=== PATIENT | male | born 1980 | race Caucasian/White ===

== ENCOUNTER 2016-06-30 17:31 | Emergency (ER) | payer OTHER ==
[~2016-06-30] VITALS: Ht 175.3 cm; Wt 76.5 kg
[~2016-06-30 17:31] MED LIST: ASACOL400 MG PO; ASPIRIN325 MG PO; BENTYL10 MG PO; BENTYL20 MG PO; CIPRO500 MG PO; DONNATAL1 TABLET PO; ENDOCORT PO; FLAGYL500 MG PO; METAMUCIL PACKE1 PKT PO; NIACIN 50 MG TA50 MG PO; NORCO 5/3251 TABLET PO; NORCO 7.5/321 TABLET PO; OXYCODONE HCL10 MG PO; PERCOCET 10-321 EACH PO; PERCOCET 5/31 TABLET PO; PREDNISONE10 MG PO; REMICADE10 MG/ML IV; SUDAFED30 MG PO; ULTRAM50 MG PO; ZOFRAN ODT4 MG PO
[2016-06-30 17:42] VITALS: BP 125/83
[2016-06-30] MEDS ORDERED: KEFLEX500 MG PO (18:35)
== END 2016-06-30 19:08 | disposition home or self-care (01) ==
LOC: EME 17:31
DX: L02.416 Cutaneous abscess of left lower limb (principal); Z88.6 Allergy status to analgesic agent
CPT/HCPCS: 99281; 99283

== ENCOUNTER 2016-11-07 08:31 | Day surgery (SDC) | payer OTHER ==
[~2016-11-07] VITALS: Ht 175.3 cm; Wt 79.4 kg
[~2016-11-07 08:31] MED LIST changes: +FLEXERIL10 MG PO; +KEFLEX500 MG PO; +LYRICA100 MG PO; +PROAIR HFA8.5 GM IH; +ZYBAN 150 MG T150 MG PO
== END 2016-11-07 10:25 | disposition home or self-care (01) ==
LOC: PAIN 08:31
DX: M50.13 Cervical disc disorder with radiculopathy, cervicothoracic region (principal); M99.81 Other biomechanical lesions of cervical region; M48.02 Spinal stenosis, cervical region; F17.210 Nicotine dependence, cigarettes, uncomplicated; Z79.891 Long term (current) use of opiate analgesic
CPT/HCPCS: J1030; J2250; J3010

== ENCOUNTER 2016-12-12 08:41 | Day surgery (SDC) | payer OTHER ==
[~2016-12-12] VITALS: Ht 175.3 cm; Wt 81.6 kg
== END 2016-12-12 10:34 | disposition home or self-care (01) ==
LOC: PAIN 08:41 → SDC 09:15 → PAIN 09:15
PROC: 3E0R3BZ Introduction of Anesthetic Agent into Spinal Canal, Percutaneous Approach (ICD-10-PCS; principal; 2016-12-12)
PROC: 3E0R33Z Introduction of Anti-inflammatory into Spinal Canal, Percutaneous Approach (ICD-10-PCS; principal; 2016-12-12)
PROC: B01B1ZZ Fluoroscopy of Spinal Cord using Low Osmolar Contrast (ICD-10-PCS; 2016-12-12)
DX: M50.123 Cervical disc disorder at C6-C7 level with radiculopathy (principal); K50.90 Crohn's disease, unspecified, without complications; E78.5 Hyperlipidemia, unspecified; J45.909 Unspecified asthma, uncomplicated; F41.8 Other specified anxiety disorders; F17.210 Nicotine dependence, cigarettes, uncomplicated
CPT/HCPCS: J1030; J2250; J3010

== ENCOUNTER 2017-02-13 08:00 | Day surgery (SDC) | payer OTHER ==
[~2017-02-13] VITALS: Ht 175.3 cm; Wt 81.6 kg
== END 2017-02-13 10:30 | disposition home or self-care (01) ==
LOC: PAIN 08:00 → SDC 09:00 → PAIN 09:00
DX: M51.36 Other intervertebral disc degeneration, lumbar region (principal); M54.5 Low back pain; G89.29 Other chronic pain; M48.06 Spinal stenosis, lumbar region; Z87.891 Personal history of nicotine dependence; J45.909 Unspecified asthma, uncomplicated
CPT/HCPCS: J1030; J2250; J3010; S0020

== ENCOUNTER 2017-02-20 15:08 | Day surgery (SDC) | payer OTHER ==
[~2017-02-20] VITALS: Ht 175.3 cm; Wt 81.6 kg
== END 2017-02-20 17:01 | disposition home or self-care (01) ==
LOC: PAIN 15:08
DX: M43.06 Spondylolysis, lumbar region (principal); M54.5 Low back pain; G89.29 Other chronic pain; M51.36 Other intervertebral disc degeneration, lumbar region; G56.21 Lesion of ulnar nerve, right upper limb; M54.12 Radiculopathy, cervical region; M48.02 Spinal stenosis, cervical region; J45.909 Unspecified asthma, uncomplicated; Z87.891 Personal history of nicotine dependence; F17.200 Nicotine dependence, unspecified, uncomplicated
CPT/HCPCS: J1030; J2250; J3010; S0020

== ENCOUNTER → 2017-03-23 | Outpatient (CLI) | payer OTHER | END | disposition home or self-care (01) | LOC: CDC 09:35 | DX: M79.601 Pain in right arm (principal); G56.21 Lesion of ulnar nerve, right upper limb | CPT/HCPCS: 93000 ==

== ENCOUNTER 2017-05-10 14:12 | Day surgery (SDC) | payer OTHER ==
[~2017-05-10] VITALS: Ht 175.3 cm; Wt 90.7 kg
== END 2017-05-10 15:55 | disposition home or self-care (01) ==
LOC: PAIN 14:12 → SDC 14:30 → PAIN 15:55
DX: M47.816 Spondylosis without myelopathy or radiculopathy, lumbar region (principal); M43.06 Spondylolysis, lumbar region; M54.12 Radiculopathy, cervical region; M12.88 Other specific arthropathies, not elsewhere classified, other specified site; Z87.891 Personal history of nicotine dependence; K50.90 Crohn's disease, unspecified, without complications; F41.9 Anxiety disorder, unspecified; F32.9 Major depressive disorder, single episode, unspecified; E78.5 Hyperlipidemia, unspecified; Z88.5 Allergy status to narcotic agent; Z88.8 Allergy status to other drugs, medicaments and biological substances
CPT/HCPCS: J1030; J1885; J2250; J3010; S0020

== ENCOUNTER 2017-05-17 14:00 | Day surgery (SDC) | payer OTHER ==
[~2017-05-17] VITALS: Ht 177.8 cm; Wt 86.6 kg
== END 2017-05-17 15:35 | disposition home or self-care (01) ==
LOC: PAIN 14:00 → SDC 14:30 → PAIN 14:30
DX: M47.816 Spondylosis without myelopathy or radiculopathy, lumbar region (principal); M54.5 Low back pain; G89.29 Other chronic pain; M48.02 Spinal stenosis, cervical region; J45.909 Unspecified asthma, uncomplicated; M54.12 Radiculopathy, cervical region; E78.5 Hyperlipidemia, unspecified; Z79.891 Long term (current) use of opiate analgesic; Z87.891 Personal history of nicotine dependence
CPT/HCPCS: J1030; J1885; J2250; J3010; S0020

== ENCOUNTER 2017-05-22 23:54 | Emergency (ER) | payer OTHER ==
[~2017-05-22] VITALS: Ht 175.3 cm; Wt 88.0 kg
[2017-05-23] MEDS ORDERED: MEDROL DOSEPAK4 MG PO (03:55)
[2017-05-23 04:14] VITALS: BP 135/95
== END 2017-05-23 04:15 | disposition home or self-care (01) ==
LOC: EME 23:54
DX: M25.512 Pain in left shoulder (principal); Z88.6 Allergy status to analgesic agent; Z88.5 Allergy status to narcotic agent; Z88.8 Allergy status to other drugs, medicaments and biological substances
CPT/HCPCS: 73030; 93971; 99281; 99283

== ENCOUNTER → 2017-07-10 | Day surgery (SDC) | payer OTHER ==
[~2017-07-10] VITALS: Ht 177.8 cm; Wt 90.7 kg
[~2017-07-10] MED LIST changes: +MEDROL DOSEPAK4 MG PO
== END | disposition home or self-care (01) ==
LOC: PAIN 14:50 → SDC 15:15 → PAIN 15:15
PROC: 3E0S33Z Introduction of Anti-inflammatory into Epidural Space, Percutaneous Approach (ICD-10-PCS; principal; 2017-07-10)
DX: M50.221 Other cervical disc displacement at C4-C5 level (principal); M54.12 Radiculopathy, cervical region; M19.90 Unspecified osteoarthritis, unspecified site; M47.816 Spondylosis without myelopathy or radiculopathy, lumbar region; Z79.891 Long term (current) use of opiate analgesic; K50.90 Crohn's disease, unspecified, without complications; E78.5 Hyperlipidemia, unspecified; Q05.9 Spina bifida, unspecified; Z88.5 Allergy status to narcotic agent
CPT/HCPCS: J1100; J2250; J3010

== ENCOUNTER 2017-08-07 14:48 | Day surgery (SDC) | payer OTHER ==
[~2017-08-07] VITALS: Ht 177.8 cm; Wt 90.7 kg
== END 2017-08-07 15:45 | disposition home or self-care (01) ==
LOC: PAIN 14:48 → SDC 15:15 → PAIN 15:15
DX: M54.12 Radiculopathy, cervical region (principal); M47.812 Spondylosis without myelopathy or radiculopathy, cervical region; M50.221 Other cervical disc displacement at C4-C5 level; M47.816 Spondylosis without myelopathy or radiculopathy, lumbar region; J45.909 Unspecified asthma, uncomplicated; K21.9 Gastro-esophageal reflux disease without esophagitis; K50.90 Crohn's disease, unspecified, without complications; M79.1 Myalgia; M48.02 Spinal stenosis, cervical region; Z79.891 Long term (current) use of opiate analgesic; Z87.891 Personal history of nicotine dependence
CPT/HCPCS: J1100; J2250; J3010

== ENCOUNTER 2017-10-06 08:52 | Emergency (ER) | payer OTHER ==
[~2017-10-06] VITALS: Ht 175.3 cm; Wt 84.1 kg
[2017-10-06 09:58] LABS: BASOPHIL (%) 0.5 % (0-1); EOSINOPHIL COUNT 0.1 K/uL (0-0.3); HEMOGLOBIN 13.2 G/DL (12.5-16.6); IMMATURE GRANULOCYTE (%) 0.2 % (0.0-0.7); LYMPHOCYTE (%) 16.1 % (15-42); LYMPHOCYTE COUNT 1.3 K/uL (1.0-2.8); MCH 27.3 PG (29.0-34.0); MCHC 31.4 G/DL (30.0-36.0); MONOCYTE COUNT 0.6 K/uL (0-0.8); NEUTROPHIL (%) 75.2 % (45-76); NEUTROPHIL COUNT 6.3 K/uL (1.8-6.4); PLATELET COUNT 377 K/uL (156-360); RBC DIS.WIDTH-CV 15.4 % (11.8-14.6); RBC DIS.WIDTH-SD 49.4 % (39-53); RED BLOOD COUNT 4.83 M/uL (4.00-5.50); WHITE BLOOD COUNT 8.3 K/uL (4.1-10.2)
[2017-10-06 10:09] LABS: CHLORIDE 109 mEq/L (99-109); POTASSIUM 4.5 mEq/L (3.7-5.4); SODIUM 142 mEq/L (136-147)
[2017-10-06 10:11] LABS: GLUCOSE 110 mg/dL (70-99)
[2017-10-06 10:15] LABS: CREATININE 0.8 mg/dL (0.6-1.3); GFR ESTIMATE (CALCULATED) > 59 mL/min/ (58.99-99999)
[2017-10-06 10:16] LABS: UREA NITROGEN (BUN) 7 mg/dL (9-23)
[2017-10-06] MEDS ORDERED: ZOFRAN4 MG PO (12:10)
[2017-10-06] MEDS ORDERED: TYLENOL WITH C1 EACH PO (12:10)
[2017-10-06 12:17] VITALS: BP 120/67
== END 2017-10-06 12:21 | disposition home or self-care (01) ==
LOC: EME 08:52
PROVIDERS: Emergency Medicine
DX: K50.90 Crohn's disease, unspecified, without complications (principal); R07.89 Other chest pain; I45.10 Unspecified right bundle-branch block; J45.909 Unspecified asthma, uncomplicated; M06.9 Rheumatoid arthritis, unspecified; G43.909 Migraine, unspecified, not intractable, without status migrainosus; F41.9 Anxiety disorder, unspecified; Z87.891 Personal history of nicotine dependence; Z90.49 Acquired absence of other specified parts of digestive tract; Z88.6 Allergy status to analgesic agent; Z88.5 Allergy status to narcotic agent; Z88.8 Allergy status to other drugs, medicaments and biological substances; Z91.02 Food additives allergy status
CPT/HCPCS: 71045; 80048; 85025; 85379; 85610; 93005; 99281; 99285; J2405; J3010; J7030